=== PATIENT | female | born 1995 | race Caucasian/White ===

== ENCOUNTER 2022-04-17 06:16 | Emergency (ER) | payer BC ==
[2022-04-17] MEDS ORDERED: Ondansetron 4 MG/2 ML SDV IVPUSH ONE (06:51)
[2022-04-17] MEDS ORDERED: Sodium Chloride 0.9% 1,000 ML IV ONE (06:51)
[2022-04-17] MEDS ORDERED: LORazepam 2 MG/ML SDV IVPUSH ONE (06:52)
[2022-04-17 07:31] LABS: BLOOD UREA NITROGEN,BUN 14 mg/dL (7.0-18.0); CARBON DIOXIDE,CO2 27.3 mmol/L (21.0-32.0); CHLORIDE,CL 101 mmol/L (98-107); GLUCOSE RANDOM 102 mg/dL (74-106); POTASSIUM,K 3.9 mmol/L (3.5-5.1); SODIUM,NA 140 mmol/L (136-145)
[2022-04-17 07:33] LABS: ESTIMATED GFR 105 mL/min (>60)
== END 2022-04-17 08:58 | disposition home or self-care (01) ==
LOC: MW.ED 06:16
DX: F10.239 Alcohol dependence with withdrawal, unspecified (principal); F17.210 Nicotine dependence, cigarettes, uncomplicated
CPT/HCPCS: 36415; 71045; 80053; 80307; 81001; 81025; 85025; 87086; 96361; 96374; 96375; 99285; J2060; J2405; J7030; 93010; 99284

== ENCOUNTER 2022-11-11 13:32 | Inpatient (IN) | payer BC ==
[2022-11-11] MEDS ORDERED: Sodium Chloride 0.9% 10 ML Syringe FLUSH PRN (15:03)
[2022-11-11] MEDS ORDERED: Sodium Chloride 0.9% 2.5 ML Syringe FLUSH PRN (15:03)
[2022-11-11] MEDS ORDERED: Sodium Chloride 0.9% 1,000 ML IV STA ×2 (15:07→16:26)
[2022-11-11] MEDS ORDERED: Morphine 4 MG/ML Syringe IVPUSH STA ×2 (15:08→16:27)
[2022-11-11] MEDS ORDERED: Piperacillin/Tazobactam 3.375 GM in Sodium Chloride 0.9% 100 ML IV STA (15:08)
[2022-11-11] MEDS ORDERED: Diphtheria,Pertussis(Acell),Tetanus Vaccine 0.5 ML Syringe IM ONE (15:09)
[2022-11-11] MEDS ORDERED: VANCOmycin 1.5 GM/300 ML 1.5 GM in Premix Bag 1 BAG IV ONE (15:15)
[2022-11-11 15:23] LABS: BASOPHILS PERCENT AUTO 0.2 % (0.0-1.5); EOSINOPHILS PERCENT AUTO 0.1 % (0.0-7.0); HEMATOCRIT 42.8 % (36.0-46.0); HEMOGLOBIN 14.5 g/dL (12.0-16.0); LYMPHOCYTES ABSOLUTE AUTO 1.6 K/uL (0.6-2.4); LYMPHOCYTES PERCENT AUTO 10.8 % (16.0-40.0); MEAN CORPUSCULAR HEMOGLOBIN 30.7 pg (27.0-32.0); MEAN CORPUSCULAR HGB CONC 33.9 g/dL (31.0-37.0); MEAN CORPUSCULAR VOLUME 90.7 fL (80.0-98.0); MONOCYTES ABSOLUTE AUTO 0.9 K/uL (0.0-0.8); NEUTROPHILS PERCENT AUTO 82.9 % (48.0-80.0); NRBC ABSOLUTE 0 K/uL; PLATELET COUNT,PLT 289 K/uL (150-400); RED BLOOD CELL COUNT 4.72 M/uL (4.30-5.90)
[2022-11-11 15:51] LABS: APPEARANCE,URINE SLT CLOUDY; COLOR,URINE ORANGE; GLUCOSE,URINE NEGATIVE (NEGATIVE); KETONES,URINE >=80 mg/dL (NEGATIVE); LEUKOCYTE ESTERASE,URINE NEGATIVE (NEGATIVE); NITRITE,URINE NEGATIVE (NEGATIVE); OCCULT BLOOD,URINE TRACE-INTACT (NEGATIVE); PROTEIN,URINE TRACE mg/dL (NEGATIVE)
[2022-11-11 15:53] LABS: LACTIC ACID 1.1 mmol/L (0.4-2.0)
[2022-11-11 16:00] LABS: ALBUMIN 4.1 g/dL (3.4-5.0); BILIRUBIN TOTAL 1.2 mg/dL (0.2-1.0); CALCIUM 9.3 mg/dL (8.5-10.1); CARBON DIOXIDE,CO2 26.2 mmol/L (21.0-32.0); CREATININE 0.9 mg/dL (0.6-1.0); EST CRCL DRUG DOSING (CG) 68.64 mL/min; POTASSIUM,K 3.3 mmol/L (3.5-5.1); PROTEIN TOTAL,TP 8.3 g/dL (6.4-8.2)
[2022-11-11 16:07] LABS: BILIRUBIN,URINE MODERATE (NEGATIVE)
[2022-11-11 16:08] LABS: RBC,URINE 0-3 (0-2/HPF)
[2022-11-11 16:09] LABS: BACTERIA,URINE FEW (NEGATIVE); EPITHELIAL CELLS,URINE FEW (NONE-FEW); MUCUS,URINE LIGHT (NONE-MOD); WBC,URINE 0-3 (0-5/HPF)
[2022-11-11] MEDS ORDERED: Potassium Chloride 20 MEQ Tab.ER PO STA (16:34)
[2022-11-11] MEDS ORDERED: Iopamidol 755 MG/ML 500 ML Multipack Bottle IVPUSH ONE (16:51)
[2022-11-11] MEDS ORDERED: HYDROmorphone 1 MG/ML Syringe IVPUSH STA (17:42)
[2022-11-11] MEDS ORDERED: LORazepam 2 MG/ML SDV IVPUSH STA (18:02)
[2022-11-11] MEDS ORDERED: Ondansetron 4 MG/2 ML SDV IVPUSH PRN (20:01)
[2022-11-11] MEDS: cefTRIAXone 2 GM in Sodium Chloride 0.9% 50 ML IV SCH (20:34)
[2022-11-11] MEDS: Lactated Ringers 1,000 ML IV SCH (20:37)
[2022-11-11] MEDS: HYDROmorphone 1 MG/ML Syringe IVPUSH PRN (21:20)
[2022-11-12] MEDS: HYDROmorphone 1 MG/ML Syringe IVPUSH PRN ×6 (00:58→20:09)
[2022-11-12] MEDS: Lactated Ringers 1,000 ML IV SCH (04:30)
[2022-11-12] MEDS: oxyCODONE 5 MG Tab PO PRN ×3 (05:16→16:24)
[2022-11-12 05:57] LABS: HEMATOCRIT 37.1 % (36.0-46.0); HEMOGLOBIN 12.5 g/dL (12.0-16.0); MEAN CORPUSCULAR HEMOGLOBIN 30.8 pg (27.0-32.0); MEAN CORPUSCULAR HGB CONC 33.7 g/dL (31.0-37.0); MEAN CORPUSCULAR VOLUME 91.4 fL (80.0-98.0); MEAN PLATELET VOLUME 9.4 fL (7.40-12.00); RED BLOOD CELL COUNT 4.06 M/uL (4.30-5.90); WHITE BLOOD CELL COUNT,WBC 12.72 K/uL (4.0-11.0)
[2022-11-12 06:13] LABS: BLOOD UREA NITROGEN,BUN 5 mg/dL (7.0-18.0); CALCIUM 8.1 mg/dL (8.5-10.1); CARBON DIOXIDE,CO2 27.4 mmol/L (21.0-32.0); CHLORIDE,CL 105 mmol/L (98-107); CREATININE 0.7 mg/dL (0.6-1.0); GLUCOSE RANDOM 123 mg/dL (74-106); MAGNESIUM 1.9 mg/dL (1.8-2.4); POTASSIUM,K 4.2 mmol/L (3.5-5.1); SODIUM,NA 141 mmol/L (136-145)
[2022-11-12 06:16] LABS: ESTIMATED GFR 123 mL/min (>60)
[2022-11-12] MEDS ORDERED: Ketorolac 30 MG/ML SDV IVPUSH ONE (09:08)
[2022-11-12] MEDS: Acetaminophen 325 MG Tab PO PRN (12:18)
[2022-11-12] MEDS: Enoxaparin 40 MG/0.4 ML Syringe SUBCUT SCH (14:18)
[2022-11-12] MEDS: cefTRIAXone 2 GM in Sodium Chloride 0.9% 50 ML IV SCH (20:09)
[2022-11-13] MEDS: HYDROmorphone 1 MG/ML Syringe IVPUSH PRN ×7 (00:05→19:05)
[2022-11-13 05:59] LABS: BASOPHILS PERCENT AUTO 0.3 % (0.0-1.5); EOSINOPHILS ABSOLUTE AUTO 0.2 K/uL (0.0-0.7); HEMATOCRIT 35.7 % (36.0-46.0); HEMOGLOBIN 12.1 g/dL (12.0-16.0); LYMPHOCYTES PERCENT AUTO 17.9 % (16.0-40.0); MEAN CORPUSCULAR HEMOGLOBIN 30.7 pg (27.0-32.0); MEAN CORPUSCULAR HGB CONC 33.9 g/dL (31.0-37.0); MEAN CORPUSCULAR VOLUME 90.6 fL (80.0-98.0); MONOCYTES ABSOLUTE AUTO 0.8 K/uL (0.0-0.8); MONOCYTES PERCENT AUTO 6.8 % (0.0-15.0); NEUTROPHILS ABSOLUTE AUTO 8.2 K/uL (1.4-5.7); NRBC ABSOLUTE 0 K/uL; PLATELET COUNT,PLT 268 K/uL (150-400); RED BLOOD CELL COUNT 3.94 M/uL (4.30-5.90); WHITE BLOOD CELL COUNT,WBC 11.17 K/uL (4.0-11.0)
[2022-11-13 06:21] LABS: CALCIUM 8.4 mg/dL (8.5-10.1); CARBON DIOXIDE,CO2 27.4 mmol/L (21.0-32.0); CREATININE 0.6 mg/dL (0.6-1.0); EST CRCL DRUG DOSING (CG) 102.95 mL/min; POTASSIUM,K 3.8 mmol/L (3.5-5.1)
[2022-11-13] MEDS: oxyCODONE 5 MG Tab PO PRN ×4 (07:23→20:36)
[2022-11-13] MEDS ORDERED: Pantoprazole 40 MG Tab.CR PO SCH (09:00)
[2022-11-13] MEDS: Acetaminophen 325 MG Tab PO PRN (10:09)
[2022-11-13] MEDS ORDERED: Polyethylene Glycol 3350 Powder 17 GM Packet PO SCH (10:30)
[2022-11-13] MEDS: Enoxaparin 40 MG/0.4 ML Syringe SUBCUT SCH (13:52)
[2022-11-13] MEDS ORDERED: VANCOmycin 2 GM/400 ML 2 GM in Premix Bag 1 BAG IV SCH (17:00)
[2022-11-13] MEDS ORDERED: LORazepam 1 MG Tab PO ONE (20:21)
[2022-11-13] MEDS: cefTRIAXone 2 GM in Sodium Chloride 0.9% 50 ML IV SCH (21:26)
== END 2022-11-13 21:36 | DRG 351 ==
LOC: MW.ED 13:32 → MW.MS 18:06
PROVIDERS: ADMIT Internal Medicine; ATTEND Internal Medicine
DX: M65.842 Other synovitis and tenosynovitis, left hand (principal); E87.6 Hypokalemia; D72.829 Elevated white blood cell count, unspecified; L03.114 Cellulitis of left upper limb; E86.0 Dehydration; Z79.899 Other long term (current) drug therapy
CPT/HCPCS: 36415; 73201-26-LT; 73201-LT; 80048; 80053; 80202; 81001; 81025; 83605; 83735; 85025; 85027; 85652; 87040; 90471; 90715; 96365; 96367; 96375; 96376; 99221; 99231; 99239; 99285; 99285-25; A9270-GY; J0696; J1170; J1650; J1885; J2060; J2270; J2543; J3370; J3490; J7030; J7050; J7120; Q9967

== ENCOUNTER 2023-03-15 19:37 | Emergency (ER) | payer BC ==
[2023-03-15] MEDS ORDERED: Bacitracin Oint 1 GM U/D Packet TOP ONE (20:43)
[2023-03-15] MEDS ORDERED: Sulfamethoxazole/Trimethoprim 800-160 MG Tab PO ONE (20:48)
== END 2023-03-15 21:09 | disposition home or self-care (01) ==
LOC: MW.ED 19:37
DX: S61.412A Laceration without foreign body of left hand, initial encounter (principal); W26.0XXA Contact with knife, initial encounter
CPT/HCPCS: 99283; A9270; 12001